=== PATIENT | male | born 1995 | race Caucasian/White ===

== ENCOUNTER 2020-03-12 15:18 | Outpatient (CLI) | payer OTHER ==
--- NOTE | 2020-03-12 15:50 | RAD ---
LUMBAR SPINE 4 VIEWS: HISTORY: Low back pain. FINDINGS: Lumbar vertebrae maintain normal height and alignment. Mild disk space narrowing at L5-S1. The othe r disk spaces are normally maintained. Alignment is normal in flexion and extension. No evidence of spondylolisthesis or spondylolysis. IMPRESSION: Mild loss of disk space height at L5-S1. Lumbar spine is otherwise unremarkable. POS: AGW
== END 2020-03-12 15:19 | disposition home or self-care (01) ==
LOC: BICRAD 15:18
PROVIDERS: ATTEND Neurological Surgery
DX: M54.41 Lumbago with sciatica, right side (principal); M51.87 Other intervertebral disc disorders, lumbosacral region
CPT/HCPCS: 72110

== ENCOUNTER 2020-07-11 12:27 | Outpatient (CLI) | payer OTHER ==
--- NOTE | 2020-07-11 13:34 | MRI ---
MRI Lumbar Spine Noncontrast: HISTORY: Radiculopathy, lumbosacral region. Patient states injured back at work in December and is headed continu ed low back pain. COMPARISON: None FINDINGS: The visualized retroperitoneal structures demonstrate a normal appearance. Conus medullaris is normal in morphology and terminates at the L1 level. Normal signal intensity is demonstrated in the bone marrow. L1-2: There is no disc bulge or disc herniation. Central spinal canal and neural foramina are patent. L2-3: There is no disc bulge or disc herniation. Central spinal canal and neural foramina are patent. L3-4: There is no disc bulge or disc herniation. Central spinal canal and neural foramina are patent. L4-5: There is no disc bulge or disc herniation. Central spinal canal and neural foramina are patent. L5-S1: There is loss of intervertebral disc height. There is a broad-based central disc protrusion. T his disc protrusion does contact the bilateral traversing S1 nerve roots with mild posterior displacement of the right S1 nerve root. No significant neural foraminal narrowing is present. IMPRESSION: Large broad-based disc protrusion at the L5-S1 level which contacts the bilateral traversing S1 nerve roots and results in mild posterior displacement of the traversing right S1 nerve root.
== END 2020-07-11 12:28 | disposition home or self-care (01) ==
LOC: SCSMRI 12:27
PROVIDERS: ATTEND Family Medicine
DX: S33.5XXD Sprain of ligaments of lumbar spine, subsequent encounter (principal); M51.17 Intervertebral disc disorders with radiculopathy, lumbosacral region; G54.8 Other nerve root and plexus disorders
CPT/HCPCS: 72148

== ENCOUNTER 2020-08-20 07:31 | Outpatient (CLI) | payer MEDICAID, OTHER ==
[2020-08-20 17:04] LABS: Hemoglobin 15.5 g/dL (14.0-18.0); Mean Corpuscular HGB CONC 33.5 G/DL (32.0-36.0); Mean Corpuscular Hemoglobin 28.5 PG (27.0-33.0); Mean Corpuscular Volume 85.3 fl (80.0-100.0); Mean Platelet Volume 8.8 fl (7.4-10.4); Platelet Count 360 10x3/uL (130-400); RBC Distribution Width 12.2 % (11.5-14.5); Red Blood Cell (RBC) Count 5.43 10x6/uL (4.40-5.80)
[2020-08-20 17:08] LABS: PTT 30.5 sec (22.0-33.0); Prothrombin Time 10.4 sec (9.5-12.1)
[2020-08-21 12:56] LABS: SARS-CoV-2 MS2 Positive; SARS-CoV-2 N Gene Negative; SARS-CoV-2 S Gene Negative; SARS-CoV-2 by NAA Not Detected (NotDetected); SARS-CoV-2 orf1ab Negative
== END 2020-08-20 07:32 | disposition home or self-care (01) ==
LOC: LABBT 07:31
PROVIDERS: ATTEND Neurological Surgery
DX: Z01.812 Encounter for preprocedural laboratory examination (principal); M51.26 Other intervertebral disc displacement, lumbar region; Z20.828 Contact with and (suspected) exposure to other viral communicable diseases
CPT/HCPCS: 85027; 85610; 85730; 87635; U0003

== ENCOUNTER 2020-08-22 05:46 | Day surgery (SDC) | payer OTHER ==
--- NOTE | 2020-08-20 16:25 | HP ---
REASON FOR HISTORY AND PHYSICAL: Surgery on 08/22/2020. Case #[id number]. HISTORY OF PRESENT ILLNESS: Mr. Cordova is a 25-year-old gentleman with a chief complaint of lower back pain radiating into his right leg. He hurt his back at work on January 09, 2020. Reports he was lifting heavy equipment and when he was going up the stairs, he heard a loud pop in his back. He has been trying physical therapy and injections since with no significant relief. He describes the pain radiating to his right buttocks, posterior thigh, causing his foot and toes to go numb. He could walk about a quarter of mile before he has to sit to alleviate some pain. He has continued to experience right leg weakness. He denies bladder and bowel dysfunction. REVIEW OF SYSTEMS: CONSTITUTIONAL: Denies fever, chills. ENT: Denies change in vision, hearing. CARDIAC: Denies chest pain, shortness of breath, diaphoresis. PULMONARY: Denies shortness of breath, cough, hemoptysis. GI: Denies fecal incontinence, abdominal pain, nausea, vomiting, diarrhea, change in stool formation and consistency. : Denies urinary incontinence, trouble with urination, frequency of urination, bloody urine. SKIN: Denies skin rash, bruising, bleeding, skin masses. MUSCULOSKELETAL: As per history of present illness. NEUROLOGIC: As per history of present illness. PSYCHOLOGICAL: Denies anxiety, depression, behavior changes. PAST MEDICAL HISTORY: Heart murmur as an . PAST SURGICAL HISTORY: No surgeries reported. HOSPITALIZATIONS: No hospitalizations reported. FAMILY HISTORY: Father , diagnosed with headaches, hyperlipidemia, hypertension, stroke, arthritis. Mother alive, diagnosed with none. SOCIAL HISTORY: Smoker, yes. Alcohol, occasionally. Drugs, denies. MEDICATIONS: 1. Naproxen 500 mg. 2. Robaxin 750 mg. 3. Tylenol No.3. ALLERGIES: NO KNOWN DRUG ALLERGIES. PHYSICAL EXAMINATION: VITAL SIGNS: Weight 220, height 5 feet 8 inches, BMI 33.45. HEENT: Pupils are equal. Extraocular movements are intact. NECK: Soft, supple. No masses are noted. Range of motion is intact and nonpainful. NEUROLOGIC: Awake, alert, and oriented x3. Memory, attention, fund of knowledge is normal, and language are normal. Cranial nerves, normal and grossly intact. Gait and station: Normal. Motor: Some toe flexor weakness on the right. Mild gastroc weakness on heel lifting. Sensory: Mild loss of the right S1 in the lateral foot. Reflex: Ankle jerk less on the right. IMAGING: MRI, L5-S1 herniated lumbar disk, right S1 root. L-spine x-ray, flexion-extension, stable. ASSESSMENT: Intervertebral disk disorder with radiculopathy. PLAN: 1. Right microdiskectomy L5-S1. 2. Quit nicotine 1 month before surgery. 3. Anesthesia clearance. 4. Preop labs, CBC, PT, PTT, COVID-19. INFORMED CONSENT: We discussed the indications, risks, benefits, alternatives, and expected results from surgery. The risks discussed included, but were not limited to, bleeding, infection, CSF leak, nerve damage, weakness, incontinence, cauda equina injury, arachnoiditis, paralysis, ventilator dependency, wheelchair dependency, loss of vision, cardiopulmonary complications of anesthesia, or . Long-term complications discussed included, but were not limited to, spinal instability and future surgery. He understands the risks and is willing to proceed. Job ID: [id number] [facility]
[2020-08-21 09:44] VITALS: BMI 33.4
[2020-08-22] MEDS ORDERED: EPINEPHrine 1 MG/ML AMP ONE (06:12)
[2020-08-22] MEDS ORDERED: Bupivacaine PF 0.5% 30 ML VIAL ONE (06:12)
[2020-08-22] MEDS ORDERED: Thrombin 5000 UNITS/5 ML VIAL ONE (06:13)
[2020-08-22] MEDS ORDERED: Fentanyl 250 MCG/5 ML VIAL ONE (06:20)
[2020-08-22] MEDS ORDERED: Midazolam HCl 5 mg/5 ml Vial ONE (06:21)
[2020-08-22] MEDS ORDERED: Midazolam HCl 2 mg/2 ml Vial ONE (06:30)
[2020-08-22] MEDS ORDERED: Fentanyl 100 MCG/2 ML VIAL ONE ×3 (09:49→10:42)
[2020-08-22] MEDS ORDERED: PROPOFOL 200 MG/20 ML VIAL ONE (10:15)
[2020-08-22] MEDS ORDERED: Ondansetron PF 4 MG/2 ML Vial ONE (10:15)
[2020-08-22] MEDS ORDERED: Dexamethasone 20 MG/5 ML VIAL ONE (10:15)
[2020-08-22] MEDS ORDERED: Ketorolac Tromethamine 30 MG/ML VIAL ONE (10:15)
[2020-08-22] MEDS ORDERED: Rocuronium Bromide 10 MG/ML (10ML VIAL) ONE (10:15)
[2020-08-22] MEDS ORDERED: Glycopyrrolate 0.2 MG/ML 5 ML SYRINGE ONE (10:15)
[2020-08-22] MEDS ORDERED: Lidocaine 1% PF 5 ML VIAL ONE (10:15)
[2020-08-22] MEDS ORDERED: Tamsulosin HCl 0.4 MG CAP ONE (10:20)
[2020-08-22] MEDS ORDERED: Morphine 4 MG/ML VIAL ONE (10:47)
--- NOTE | 2020-08-22 11:00 | OP ---
DATE OF PROCEDURE: 08/22/2020 CHEMIST ORGANIC: Clint Pelletier PA-C PREOPERATIVE INDICATION: Treat pain and prevent neurological deterioration. PREOPERATIVE DIAGNOSIS: Intervertebral disk herniation at L5-S1 with right S1 radiculopathy. POSTOPERATIVE DIAGNOSIS: Intervertebral disk herniation at L5-S1 with right S1 radiculopathy. PROCEDURES PERFORMED: Right partial hemilaminectomy, medial facetectomy, microdiskectomy at L5-S1, operating microscope. PREOPERATIVE MEDICATIONS: Ancef 2 g IV. DRAIN NUMBER: Zero. DRAIN TYPE: None. DESCRIPTION OF PROCEDURE: The patient was brought to the operating room. General endotracheal anesthesia was induced. The patient was carefully positioned prone with the chest and hips supported by gel-filled chest rolls. A lateral fluoro radiograph was used to plan our incision. The lumbar skin was sterilely prepped and draped. There were some scattered infected hair follicles on the skin of the lower back, so we decided to use vancomycin powder at the end of the case. The back was sterilely prepped and draped. We opened a midline incision with a 10 blade knife and controlled bleeding with bipolar cautery. We used monopolar cautery to dissect through subcutaneous tissues to the thoracodorsal fascia. We incised the fascia right of the midline and reflected the paraspinal muscles off the spinous process and lamina of L5 and S1. A self-retaining retractor was placed and a lateral fluoro radiograph confirmed the level upon which we were operating. We used Stille rongeur and Kerrison rongeur to fashion a partial hemilaminectomy. We removed the yellow ligament in a piecemeal fashion and then brought the operating microscope into the field. Under microscopic magnification using microsurgical techniques, we performed medial facetectomy. We identified the S1 nerve root and the common thecal sac as the yellow ligament was removed. The S1 nerve root was stretched posteriorly by intervertebral disk herniation on its ventral surface. It was also tethered to that disk by significant amount of connective tissue. We carefully and microscopically peeled connections and freed the nerve. We can mobilize it medially thereafter and we entered the disk space. Multiple fragments of loose disk were removed from the ventral epidural space and the posterior margin of the intervertebral disk. All the remaining disk was firmly adherent to the endplates. We harvested a small pledget of fat, treated with antibiotic irrigation, and left that in the interspace under the nerve root in hopes that it would prevent future tethering of the nerve. The nerve was very free across the interspace and through the foramen at the completion of our diskectomy. We waxed the bone edges and controlled bleeding with bipolar cautery and infused local anesthetic in the paraspinal muscles. We treated the wound with vancomycin powder and we closed in anatomical layers. This was a clean case, no contamination. Job ID: [id number]
[2020-08-22] MEDS ORDERED: Morphine 2 MG/ML VIAL ONE (11:05)
[2020-08-22] MEDS ORDERED: HYDROcodone/Acetaminophen 5/325 mg Tablet ONE (12:29)
[2020-08-22] MEDS ORDERED: Promethazine HCl 25 MG/ML VIAL ONE (13:58)
== END 2020-08-22 14:30 | disposition home or self-care (01) ==
LOC: SDC 05:46
PROVIDERS: ATTEND Neurological Surgery
PROC: 0ST20ZZ Resection of Lumbar Vertebral Disc, Open Approach (ICD-10-PCS; principal; 2020-08-22)
PROC: 01NB0ZZ Release Lumbar Nerve, Open Approach (ICD-10-PCS; principal; 2020-08-22)
DX: M51.17 Intervertebral disc disorders with radiculopathy, lumbosacral region (principal); F17.290 Nicotine dependence, other tobacco product, uncomplicated
CPT/HCPCS: 76000; J0171; J0690; J1100; J1885; J2250; J2270; J2405; J2550; J2704; J3010; J3370; J3490; S0020